=== PATIENT | female | born 1970 | race Two or more races ===

== ENCOUNTER 2018-11-04 10:42 | Outpatient (CLI) | payer OTHER ==
[~2018-11-04 10:42] MED LIST: NABUMETONE500 MG PO; PERCOCET 5/3251 TAB PO
== END 2018-11-04 10:46 | disposition home or self-care (01) ==
LOC: SONOGRAMA 10:42 → MAMO-SONO 13:15
DX: R10.84 Generalized abdominal pain (principal)

== ENCOUNTER 2018-11-04 11:34 | Outpatient (CLI) | payer OTHER | END 2018-11-04 11:38 | disposition home or self-care (01) | LOC: LAB 11:34 | DX: R31.21 Asymptomatic microscopic hematuria (principal) ==